=== PATIENT | female | born 1930 | race Caucasian/White ===

== ENCOUNTER 2020-12-22 15:47 | Inpatient (IN) | payer BC ==
[~2020-12-22] VITALS: Ht 152.4 cm; Wt 42.8 kg
--- NOTE | 2020-12-22 15:55 | NUR ---
PATIENT [id number], WAS AT AN URGENT CARE FOR WOUND CHECK BUT WAS HAVING ON AND OFF THROBBING CHEST PAIN X 1 WEEK. PATIENT AWAKE ALERT AND ORIENTED X4. NO RESPIRATORY DISTRESS NOTED AT THIS TIME. AWAITING MD GIRON.
[2020-12-22 16:41] LABS: BASOPHILS # (AUTO) 0.1 K/uL (0.0-0.2); EOSINOPHILS % (AUTO) 0.6 % (0.0-6.0); HEMATOCRIT 24 % (33-45); HEMOGLOBIN 7.1 g/dL (11.5-14.8); LYMPHOCYTES # (AUTO) 1.4 K/uL (0.8-4.8); LYMPHOCYTES % (AUTO) 26.9 % (20.0-44.0); MEAN CORPUSCULAR HGB CONC 30 g/dl (31.0-36.0); MEAN CORPUSCULAR VOLUME 76 fL (82-100); MONOCYTES # (AUTO) 0.5 K/uL (0.1-1.30); MONOCYTES % (AUTO) 10.1 % (2.0-12.0); NEUTROPHILS # (AUTO) 3.2 K/uL (1.8-8.9); NEUTROPHILS % (AUTO) 61.4 % (43.0-81.0); PLATELET COUNT (AUTO) 416 K/uL (150-450); RED BLOOD CELL COUNT(AUTO) 3.11 MIL/uL (4.0-5.2); WHITE BLOOD COUNT (AUTO) 5.2 K/uL (4.3-11.0)
[2020-12-22 16:47] LABS: CARBON DIOXIDE 23 mmol/L (21-32); CHLORIDE 107 mmol/L (98-107); CREATININE 0.5 mg/dL (0.6-1.3); GLUCOSE 60 mg/dL (74-106); SODIUM SERUM 139 mmol/L (136-145); UREA NITROGEN, BLOOD 20 mg/dL (7-18)
[2020-12-22 17:41] LABS: EOSINOPHILS % (MANUAL) 2 % (0-4); LYMPHOCYTES % (MANUAL) 16 % (16-48); MONOCYTES % (MANUAL) 6 % (0-11.0); NEUTROPHILS % (MANUAL) 76 (42-76)
--- NOTE | 2020-12-22 17:43 | NUR ---
[facility] PAGED. AWAITING HOSPITALIST CALL BACK.
--- NOTE | 2020-12-22 17:44 | NUR ---
Patient in bed, awake alert, No distress noted.
--- NOTE | 2020-12-22 17:53 | NUR ---
CALLED MAYRA DOWD WITH NO ANSWER. AWAITING A CALL BACK.
--- NOTE | 2020-12-22 17:54 | NUR ---
Patients friend Natalie at bedside as requested.
--- NOTE | 2020-12-22 17:56 | NUR ---
MELBA MEEK ON THE PHONE WITH HOSPITALIST.
--- NOTE | 2020-12-22 18:02 | NUR ---
CALLED NURSING IT RISK ADVISOR FOR TELE BED.
--- NOTE | 2020-12-22 18:11 | NUR ---
MEREDITH (POINT OF CONTACT) [phone].
--- NOTE | 2020-12-22 19:09 | NUR ---
ASSISTED PATIENT TO RESTROOM.
--- NOTE | 2020-12-22 19:49 | NUR ---
325-2 PER RN TRUCKING CONTRACTOR
--- NOTE | 2020-12-22 20:56 | NUR ---
REPORT GIVEN TO GIANLUCA DE ANDA FOR CARISSA
[2020-12-22 22:15] VITALS: BP 135/70
--- NOTE | 2020-12-22 23:00 | NUR ---
PT TRANSFERRED TO 325-1 VIA ACLS PROTOCOL. ALL BELONGINGS WITH PT
--- NOTE | 2020-12-22 23:00 | NUR ---
JOB FOREMAN OPENING NOTES: RECEIVED PATIENT FROM ER VIA GURNEY, AWAKE, AMBULATORY, NO COMPLAIN OF PAIN AND DISCOMFORT, PLACE IN BED COMFORTABLY, BED IN LOW POSITION, CALL LIGHTS WITHIN REACH, ORIENTED TO ROOM, ON TELE MONITORING WITH READING SR -55-58 WITH BBB, NO SYMPTOMS WAS OBSERVED, PATIENT WITH IV LINE AT LFA#20- SL, PATIENT WAS AMBULATORY AND ABLE TO MAKE NEEDS KNOWN, SKIN CHECK DONE, PICTURES ON SKIN ISSUE TAKEN, INVENTORY DONE, PATIENT KEPT COMFORTABLE AND DRY, REMIND TO USE CALL LIGHTS WHEN NEEDED ASSISTANCE, WILL CONTINUE TO MONITOR
[2020-12-22] MEDS ORDERED: ONDANSETRON HCL/PF 4 MG/2 ML VIAL IVP PRN (23:30)
[2020-12-22] MEDS ORDERED: Z GUARD REMEDY 2 OZ OINT TP PRN (23:30)
[2020-12-22] MEDS ORDERED: ACETAMINOPHEN 325 MG TABLET PO PRN (23:30)
[2020-12-22] MEDS ORDERED: SOD FERRIC GLUC 125 MG in IV NS 0.9% 100 ML IV SCH (23:30)
[2020-12-22] MEDS ORDERED: SOD FERRIC GLUC 62.5 MG/5 ML AMPUL IV ONE (23:55)
[2020-12-23] VITALS (10 sets, daily range): BP systolic 125–152; BP diastolic 34–84
[2020-12-23 06:28] LABS: CHOLESTEROL 189 mg/dL (<200); HDL CHOLESTEROL 90 mg/dL (40-60); LDL 85 mg/dL (0-99); THYROID STIMULATING HORMONE 1.446 uIU/mL (0.358-3.74); TRIGLYCERIDES 54 mg/dL (30-150)
[2020-12-23 06:52] LABS: IRON, SERUM 182 ug/dl (50-175); TOTAL IRON BINDING CAPACITY 421 ug/dl (250-450)
[2020-12-23 07:00] LABS: LYMPHOCYTES # (AUTO) 2.1 K/uL (0.8-4.8); MONOCYTES # (AUTO) 0.3 K/uL (0.1-1.30); WHITE BLOOD COUNT (AUTO) 5.3 K/uL (4.3-11.0)
--- NOTE | 2020-12-23 07:06 | NUR ---
PRODUCT DEVELOPMENT ACTUARY CLOSING NOTES: PATIENT SLEEP IN BED COMFORTABLY, BED IN LOW POSITION, CALL LIGHTS WITHIN REACH, NO COMPLAIN OF PAIN AND DISCOMFORT AT THIS TIME, WITH IV LINE AT LEFT HAND #20 SL PATIENT, ON TELE MONITORING SR-67 WITH BBB NO SYMPTOMS WAS NOTED, WITH PENDING BLOOD TRANSFUSION, PATIENT KEPT CLEAN AND DRY,ALL NEEDS MET, ENDORSE TO INCOMING SHIFT.
[2020-12-23 07:09] LABS: BASOPHILS # (AUTO) 0.1 K/uL (0.0-0.2); EOSINOPHILS % (AUTO) 2.6 % (0.0-6.0); HEMATOCRIT 21 % (33-45); LYMPHOCYTES % (AUTO) 38.7 % (20.0-44.0); MEAN CORPUSCULAR HGB CONC 32 g/dl (31.0-36.0); MEAN CORPUSCULAR VOLUME 74 fL (82-100); MONOCYTES % (AUTO) 5.8 % (2.0-12.0); NEUTROPHILS # (AUTO) 2.8 K/uL (1.8-8.9); NEUTROPHILS % (AUTO) 51.9 % (43.0-81.0); PLATELET COUNT (AUTO) 383 K/uL (150-450); RED BLOOD CELL COUNT(AUTO) 2.88 MIL/uL (4.0-5.2)
--- NOTE | 2020-12-23 07:54 | NUR ---
CABANA ATTENDANT OPENING NOTES RECEIVED PATIENT IN BED, AWAKE, A/O X4. PATIENT ON ROOM AIR; BREATHING EVEN AND UNLABORED, NO SOB NOTED AT THIS TIME. NO COMPLAINS OF PAIN. TELE MONITOR WITH A CURRENT READING OF NSR 67. IV ACCESS OF L WRIST G #20; SL. SAFETY PRECAUTIONS IN PLACE; BED IN LOW POSITION AND LOCKED, RAILS UP X2, CALL LIGHT WITHIN REACH. WILL CONTINUE TO MONITOR PATIENT.
[2020-12-23] MEDS: PANTOPRAZOLE 40 MG TABLET.DR PO SCH (08:11)
[2020-12-23 08:15] LABS: HEMOGLOBIN 6.8 g/dL (11.5-14.8)
[2020-12-23 08:42] LABS: EOSINOPHILS % (MANUAL) 1 % (0-4); LYMPHOCYTES % (MANUAL) 27 % (16-48); MONOCYTES % (MANUAL) 4 % (0-11.0); NEUTROPHILS % (MANUAL) 68 (42-76)
[2020-12-23] MEDS ORDERED: ASPIRIN EC 81 MG TABLET.DR PO SCH (09:00)
--- NOTE | 2020-12-23 09:00 | NUR ---
[employer] BI ARCHITECT NOTES LAB CALLED WITH CRITICAL HGB OF 6.8 MD ON THE FLOOR AND AWARE. PATIENT SIGNED BLOOD TRANSFUSION CONSENT.
[2020-12-23 10:32] LABS: ALANINE AMINOTRANSFERASE 23 U/L (12-78); ALBUMIN 2.9 g/dL (3.4-5.0); ALKALINE PHOSPHATASE 53 U/L (46-116); ASPARTATE AMINOTRANSFERASE 18 U/L (15-37); BILIRUBIN,TOTAL 0.5 mg/dL (0.2-1.0); CALCIUM, SERUM 7.7 mg/dL (8.5-10.1); CARBON DIOXIDE 24 mmol/L (21-32); CHLORIDE 107 mmol/L (98-107); CREATININE 0.5 mg/dL (0.6-1.3); GLUCOSE 95 mg/dL (74-106); PHOSPHORUS 2.9 mg/dL (2.5-4.9); POTASSIUM 4.1 mmol/L (3.5-5.1); SODIUM SERUM 138 mmol/L (136-145); TOTAL PROTEIN, SERUM 5.5 g/dL (6.4-8.2); UREA NITROGEN, BLOOD 28 mg/dL (7-18)
--- NOTE | 2020-12-23 12:25 | NUR ---
SCIENCE MANAGER NOTES PATIENT STARTED BLOOD TRANSFUSION. VS WNL.
--- NOTE | 2020-12-23 16:12 | NUR ---
SURVEILLANCE ANALYST NOTES BLOOD TRANSFUSION DONE. NO ADVERSE REACTIONS NOTED. VS WNL. WILL CONTINUE TO MONITOR PATIENT.
[2020-12-23] MEDS: FERRLICET 125MG in 100 ML NS IVPB IV SCH (17:17)
--- NOTE | 2020-12-23 18:55 | NUR ---
MORTGAGE LOAN FUNDER CLOSING NOTES PATIENT REMAINS IN BED, AWAKE, A/O X4. PATIENT ON ROOM AIR; BREATHING EVEN AND UNLABORED, NO SOB NOTED. NO COMPLAINS OF PAIN. TELE MONITOR WITH A CURRENT READING OF NSR 70. IV ACCESS ON LANIE MIDLINE. ALL NEEDS ATTENDED DURING THE DAY. SAFETY PRECAUTIONS IN PLACE; BED IN LOW POSITION AND LOCKED, RAILS UP X2, CALL LIGHT WITHIN REACH. WILL ENDORSE TO MEDICAID ELIGIBILITY SPECIALIST NURSE.
--- NOTE | 2020-12-23 19:40 | NUR ---
LOGGING ASSISTANT NOTES RECEIVED ON BED A/O X3-4,NO SOB,SR WITH BBB ON TELE MONITOR-81,WITH LEFT UPPER ARM MIDLINE INTACT AND PATENT.ASSIST WITH ADLS,FALL PRECAUTION OBSERVED,BED ON LOWEST POSITION AND LOCKED.CALL LIGHT IN REACH,NEEDS ANTICIPATED.
[2020-12-23 20:34] LABS: OCCULT BLOOD STOOL POSITIVE (NEGATIVE)
[2020-12-23] MEDS: ATORVASTATIN 10 MG TABLET PO SCH (21:35)
[2020-12-24] VITALS (7 sets, daily range): BP systolic 142–152; BP diastolic 63–87
--- NOTE | 2020-12-24 07:33 | NUR ---
SERVICE CONTROL OPERATOR OPENING NOTES RECEIVED PATIENT AWAKE IN BED, ALERT AN ORIENTED X 4. NOT IN ANY APPARENT DISTRESS. IV ACCESS LANIE MIDLINE PATENT AND INTACT. BREATHING IS EVEN AND UNLABORED. TOLERATING WELL ON ROOM AIR. SAFETY MEASURES IN PLACE WITH BED LOCKED AT LOW POSITION AND SIDE RAILS UP X2. CALL LIGHT IS WITHIN REACH. WILL CONTINUE TO MONITOR THROUGHOUT SHIFT.
[2020-12-24 08:16] LABS: BASOPHILS % (AUTO) 0.5 % (0.0-2.0); EOSINOPHILS % (AUTO) 3.2 % (0.0-6.0); HEMATOCRIT 30 % (33-45); HEMOGLOBIN 9.4 g/dL (11.5-14.8); LYMPHOCYTES # (AUTO) 1.5 K/uL (0.8-4.8); MEAN CORPUSCULAR HGB CONC 32 g/dl (31.0-36.0); MEAN CORPUSCULAR VOLUME 77 fL (82-100); MONOCYTES # (AUTO) 0.6 K/uL (0.1-1.30); MONOCYTES % (AUTO) 8.3 % (2.0-12.0); NEUTROPHILS # (AUTO) 4.7 K/uL (1.8-8.9); PLATELET COUNT (AUTO) 398 K/uL (150-450); RED BLOOD CELL COUNT(AUTO) 3.81 MIL/uL (4.0-5.2)
[2020-12-24 08:17] LABS: CALCIUM, SERUM 8.5 mg/dL (8.5-10.1); CREATININE 0.6 mg/dL (0.6-1.3); POTASSIUM 4.1 mmol/L (3.5-5.1)
[2020-12-24] MEDS: PANTOPRAZOLE 40 MG TABLET.DR PO SCH (08:21)
[2020-12-24 09:35] LABS: EOSINOPHILS % (MANUAL) 1 % (0-4); LYMPHOCYTES % (MANUAL) 16 % (16-48); MONOCYTES % (MANUAL) 6 % (0-11.0); NEUTROPHILS % (MANUAL) 77 (42-76)
[2020-12-24] MEDS ORDERED: ALPRAZOLAM 0.25 MG TABLET PO PRN (12:30)
[2020-12-24] MEDS: FERRLICET 125MG in 100 ML NS IVPB IV SCH (14:18)
--- NOTE | 2020-12-24 19:00 | NUR ---
MS RN CLOSING NOTES PATIENT AWAKE IN BED, ALERT AN ORIENTED X 4, ANXIOUS. NOT IN ANY APPARENT DISTRESS. IV ACCESS LANIE MIDLINE PATENT AND INTACT. ALL NEEDS MET THROUGHOUT SHIFT. BREATHING IS EVEN AND UNLABORED. TOLERATING WELL ON ROOM AIR. SAFETY MEASURES MAINTAINED. CALL LIGHT IS WITHIN REACH. WILL ENDORSE CONTINUITY OF CARE TO ONCOMING SHIFT.
--- NOTE | 2020-12-24 19:49 | NUR ---
MS RN OPENING NOTE PT A/OX4; ABLE TO MAKE NEEDS KNOWN. ON R/A; TOLERATING WELL WITH NO SOB. LANIE MIDLINE #18G S/L; PATENT AND INTACT. DENIES PAIN OR DISCOMFORT AT THIS TIME. SAFETY MEASURES IN PLACE: BED IN LOWEST LOCKED POSITION; SIDE RAILS UPX2, CALL LIGHT WITHIN EASY REACH. PATIENT IN STABLE CONDITION; WILL CONT PLAN OF CARE.
[2020-12-24] MEDS: ATORVASTATIN 10 MG TABLET PO SCH (21:16)
[2020-12-24] MEDS: PANTOPRAZOLE 40 MG VIAL IV SCH (21:16)
--- NOTE | 2020-12-25 06:25 | NUR ---
MS RN CLOSING NOTE PT A/OX4; ABLE TO MAKE NEEDS KNOWN. ON R/A; TOLERATING WELL WITH NO SOB. LANIE MIDLINE #18G S/L; PATENT AND INTACT. DENIES PAIN OR DISCOMFORT AT THIS TIME. SAFETY MEASURES IN PLACE: BED IN LOWEST LOCKED POSITION; SIDE RAILS UPX2, CALL LIGHT WITHIN EASY REACH. PATIENT IN STABLE CONDITION; WILL ENDORSE PLAN OF CARE TO ONCOMING MORNING RN.
[2020-12-25 07:35] LABS: CALCIUM, SERUM 8.3 mg/dL (8.5-10.1); CREATININE 0.6 mg/dL (0.6-1.3); POTASSIUM 4.1 mmol/L (3.5-5.1)
--- NOTE | 2020-12-25 07:35 | NUR ---
MS RN OPENING NOTES RECEIVED PATIENT AWAKE IN BED, ALERT AN ORIENTED X 4. NOT IN ANY APPARENT DISTRESS. IV ACCESS LANIE MIDLINE PATENT AND INTACT. BREATHING IS EVEN AND UNLABORED. TOLERATING WELL ON ROOM AIR. SAFETY MEASURES IN PLACE WITH BED LOCKED AT LOW POSITION AND SIDE RAILS UP X2. CALL LIGHT IS WITHIN REACH. WILL CONTINUE TO MONITOR THROUGHOUT SHIFT.
[2020-12-25 07:54] LABS: BASOPHILS # (AUTO) 0.1 K/uL (0.0-0.2); BASOPHILS % (AUTO) 1.7 % (0.0-2.0); EOSINOPHILS % (AUTO) 4.5 % (0.0-6.0); HEMATOCRIT 25 % (33-45); HEMOGLOBIN 7.9 g/dL (11.5-14.8); LYMPHOCYTES # (AUTO) 1.3 K/uL (0.8-4.8); LYMPHOCYTES % (AUTO) 21.2 % (20.0-44.0); MEAN CORPUSCULAR HGB CONC 32 g/dl (31.0-36.0); MEAN CORPUSCULAR VOLUME 77 fL (82-100); MONOCYTES # (AUTO) 0.7 K/uL (0.1-1.30); MONOCYTES % (AUTO) 11.5 % (2.0-12.0); NEUTROPHILS # (AUTO) 3.7 K/uL (1.8-8.9); NEUTROPHILS % (AUTO) 61.1 % (43.0-81.0); PLATELET COUNT (AUTO) 296 K/uL (150-450); RED BLOOD CELL COUNT(AUTO) 3.21 MIL/uL (4.0-5.2)
[2020-12-25 08:00] VITALS: BP 140/64
[2020-12-25] MEDS: PANTOPRAZOLE 40 MG VIAL IV SCH ×2 (08:29→21:18)
[2020-12-25 08:57] LABS: EOSINOPHILS % (MANUAL) 7 % (0-4); LYMPHOCYTES % (MANUAL) 16 % (16-48); MONOCYTES % (MANUAL) 17 % (0-11.0); NEUTROPHILS % (MANUAL) 60 (42-76)
[2020-12-25] MEDS: FERRLICET 125MG in 100 ML NS IVPB IV SCH (14:40)
[2020-12-25 16:00] VITALS: BP_SYST 134; BP_SYST 135; BP_DIAS 65; BP_DIAS 79
--- NOTE | 2020-12-25 18:25 | NUR ---
MS RN CLOSING NOTES PT IS RESTING IN BED COMFORTABLY, ALERT AN ORIENTED X 4. NOT IN ANY APPARENT DISTRESS. BREATHING IS EVEN AND UNLABORED. TOLERATING WELL ON ROOM AIR. ALL NEEDS MET THROUGHOUT SHIFT. SAFETY MEASURES MAINTAINED. CALL LIGHT IS WITHIN REACH. WILL ENDORSE CONTINUITY OF CARE TO ONCOMING SHIFT.
--- NOTE | 2020-12-25 19:35 | NUR ---
MS/RN OPENING NOTE RECEIVED PATIENT RESTING IN BED. AWAKE, ALERT AND ORIENTED X 4. ABLE TO MAKE NEEDS KNOWN. DENIES PAIN AT THIS TIME. CONTINUES ON ROOM AIR WITH NO S/SX OF RESPIRATORY DISTRESS NOTED. IV ACCESS TO LEFT UPPER ARM MIDLINE INTACT, PATENT AND SALINE LOCKED. PATIENT TO BE NPO AFTER MIDNIGHT FOR EGD IN AM. PATIENT AWARE AND AGREEABLE. CALL LIGHT WITHIN REACH. ASPIRATION, FALL AND SAFETY PRECAUTIONS MAINTAINED. WILL CONTINUE TO MONITOR.
[2020-12-25 20:00] VITALS: BP 149/78
[2020-12-25] MEDS: ATORVASTATIN 10 MG TABLET PO SCH (21:18)
--- NOTE | 2020-12-26 06:30 | NUR ---
MS/RN CLOSING NOTE PATIENT CURRENTLY SLEEPING IN BED. ALERT AND ORIENTED X 4. ABLE TO MAKE NEEDS KNOWN. DENIES PAIN AT THIS TIME. CONTINUES ON ROOM AIR WITH NO S/SX OF RESPIRATORY DISTRESS NOTED. IV ACCESS TO LEFT UPPER ARM MIDLINE INTACT, PATENT AND SALINE LOCKED. PATIENT HAS BEEN NPO SINCE MIDNIGHT FOR EGD TODAY. CALL LIGHT WITHIN REACH. ASPIRATION, FALL AND SAFETY PRECAUTIONS MAINTAINED. WILL ENDORSE PLAN OF CARE TO ONCOMING SHIFT.
--- NOTE | 2020-12-26 07:59 | NUR ---
RN MS NOTES PT IN BED, ASLEEP, EASY TO AROUSE, NO COMPLAINT OF PAIN OR ANY DISCOMFORT, CALL LIGHT WITHIN REACH, KEPT NPO FOR EGD TODAY.
[2020-12-26 08:00] VITALS: BP 133/60
[2020-12-26] MEDS: PANTOPRAZOLE 40 MG VIAL IV SCH ×2 (08:23→21:16)
[2020-12-26 13:12] LABS: BASOPHILS # (AUTO) 0.1 K/uL (0.0-0.2); BASOPHILS % (AUTO) 1.3 % (0.0-2.0); EOSINOPHILS % (AUTO) 2.9 % (0.0-6.0); HEMATOCRIT 28 % (33-45); HEMOGLOBIN 8.6 g/dL (11.5-14.8); LYMPHOCYTES # (AUTO) 0.6 K/uL (0.8-4.8); LYMPHOCYTES % (AUTO) 10.7 % (20.0-44.0); MEAN CORPUSCULAR HGB CONC 31 g/dl (31.0-36.0); MEAN CORPUSCULAR VOLUME 79 fL (82-100); MONOCYTES # (AUTO) 0.5 K/uL (0.1-1.30); MONOCYTES % (AUTO) 8.7 % (2.0-12.0); NEUTROPHILS # (AUTO) 4.1 K/uL (1.8-8.9); NEUTROPHILS % (AUTO) 76.4 % (43.0-81.0); PLATELET COUNT (AUTO) 359 K/uL (150-450); RED BLOOD CELL COUNT(AUTO) 3.49 MIL/uL (4.0-5.2); WHITE BLOOD COUNT (AUTO) 5.4 K/uL (4.3-11.0)
[2020-12-26 14:01] LABS: CALCIUM, SERUM 8.4 mg/dL (8.5-10.1); CREATININE 0.6 mg/dL (0.6-1.3); POTASSIUM 4.2 mmol/L (3.5-5.1)
[2020-12-26] MEDS: FERRLICET 125MG in 100 ML NS IVPB IV SCH (14:01)
--- NOTE | 2020-12-26 14:19 | NUR ---
RN MS NOTES PT SEEN AND EXAMINED BY DR. PICKERING, PLAN FOR EGD AND COLONOSCOPY EXPLAINED TO PT, VERBALIZED UNDERSTANDING, ORDERS GIVEN, NOTED AND CARRIED OUT.
[2020-12-26 16:00] VITALS: BP 149/84
[2020-12-26] MEDS ORDERED: PEG 3350/NA SULF,BICARB,CL/KCL 4,000 ML BOTTLE PO ONE (18:00)
--- NOTE | 2020-12-26 18:22 | NUR ---
RN MS NOTES PT IN BED, AWAKE, ALERT AND ORIENTED, NO COMPLAINT OF PAIN OR ANY DISCOMFORT, RESPIRATIONS NORMAL, CALL LIGHT WITHIN REACH, AMBULATES TO THE BATHROOM WITH SLOW AND STEADY GAIT, AWARE OF BOWEL PREP FOR TOMORROW' EGD AND COLONOSCOPY, KEPT MEDIA SENIOR RECRUITER BED.
--- NOTE | 2020-12-26 19:35 | NUR ---
MS/RN OPENING NOTE RECEIVED PATIENT RESTING IN BED. ALERT AND ORIENTED X 4. ABLE TO MAKE NEEDS KNOWN. DENIES PAIN AT THIS TIME. CONTINUES ON ROOM AIR WITH NO S/SX OF RESPIRATORY DISTRESS NOTED. IV ACCESS TO LEFT UPPER ARM MIDLINE INTACT, PATENT AND SALINE LOCKED. CONTINUES ON GOLYTELY FOR ANTICIPATED COLONOSCOPY AND EGD IN AM. ALL CONSENTS SIGNED AND IN CHART. PATIENT TO BE NPO AT MIDNIGHT EXCEPT GOLYTELY. CALL LIGHT WITHIN REACH. ASPIRATION, FALL AND SAFETY PRECAUTIONS MAINTAINED. WILL CONTINUE TO MONITOR.
[2020-12-26 20:00] VITALS: BP 168/93
[2020-12-26 20:45] VITALS: BP 146/78
[2020-12-26] MEDS: ATORVASTATIN 10 MG TABLET PO SCH (21:16)
[2020-12-27] MEDS ORDERED: SORBITOL SOLUTION 30 ML PO ONE (06:00)
--- NOTE | 2020-12-27 06:15 | NUR ---
MS/RN CLOSING NOTE PATIENT CURRENTLY RESTING IN BED. ALERT AND ORIENTED X 4. ABLE TO MAKE NEEDS KNOWN. DENIES PAIN AT THIS TIME. CONTINUES ON ROOM AIR WITH NO S/SX OF RESPIRATORY DISTRESS NOTED. IV ACCESS TO LEFT UPPER ARM MIDLINE INTACT, PATENT AND SALINE LOCKED. COMPLETED MOST OF GOLYTELY FOR COLONOSCOPY AND EGD TODAY. PATIENT REPORTS STOOLS ARE WATERY AND CLEAR. ALL CONSENTS SIGNED AND IN CHART. PATIENT HAS BEEN NPO SINCE MIDNIGHT. CALL LIGHT WITHIN REACH. ASPIRATION, FALL AND SAFETY PRECAUTIONS MAINTAINED. WILL ENDORSE PLAN OF CARE TO ONCOMING SHIFT.
[2020-12-27 06:52] LABS: BASOPHILS # (AUTO) 0.1 K/uL (0.0-0.2); BASOPHILS % (AUTO) 1.1 % (0.0-2.0); EOSINOPHILS % (AUTO) 3.5 % (0.0-6.0); HEMATOCRIT 26 % (33-45); HEMOGLOBIN 8.4 g/dL (11.5-14.8); LYMPHOCYTES # (AUTO) 0.9 K/uL (0.8-4.8); LYMPHOCYTES % (AUTO) 17.6 % (20.0-44.0); MEAN CORPUSCULAR HGB CONC 32 g/dl (31.0-36.0); MEAN CORPUSCULAR VOLUME 80 fL (82-100); MONOCYTES # (AUTO) 0.5 K/uL (0.1-1.30); MONOCYTES % (AUTO) 10.1 % (2.0-12.0); NEUTROPHILS # (AUTO) 3.6 K/uL (1.8-8.9); NEUTROPHILS % (AUTO) 67.7 % (43.0-81.0); PLATELET COUNT (AUTO) 322 K/uL (150-450); RED BLOOD CELL COUNT(AUTO) 3.32 MIL/uL (4.0-5.2); WHITE BLOOD COUNT (AUTO) 5.3 K/uL (4.3-11.0)
[2020-12-27 07:20] LABS: CALCIUM, SERUM 8.5 mg/dL (8.5-10.1); CREATININE 0.6 mg/dL (0.6-1.3); POTASSIUM 3.9 mmol/L (3.5-5.1)
--- NOTE | 2020-12-27 07:45 | NUR ---
RN OPENING NOTES Patient seen comfortably lying in bed, no SOB, respirations even and unlabored, no apparent distress noted, denies any pain or discomfort at this time, no grimacing. Patient remains NPO for EGD/colonoscopy today. Call light left within reach, safety measures maintained, brakes locked, side rails up X2, will monitor closely for any changes.
[2020-12-27 08:00] VITALS: BP 158/76
[2020-12-27] MEDS: PANTOPRAZOLE 40 MG VIAL IV SCH ×2 (08:11→21:05)
--- NOTE | 2020-12-27 09:11 | NUR ---
WOUND CARE CONSULT: PT PRESENTS WITH SKIN TEAR TO RT ARM, PRESENT ON ADMISSION. RECOMMENDATIONS MADE FOR SKIN PROTECTION AND CARE. DISCUSSED WITH NURSING STAFF. PT IS INDEPENDENT WITH BED MOBILITY AND IS CONTINENT. IN AGREEMENT WITH PLAN OF CARE. Addendum: 12/27/20 at 0912 by ROBYN PASTOR [id number] Amended: Links added.
--- NOTE | 2020-12-27 11:17 | NUR ---
RN MS NOTES PT IN BED, AWAKE, ALERT AND ORIENTED, NO COMPLAINT OF PAIN, NO SOB, PT SEEN BY DR. PEÑA, PLAN OF CARE DISCUSSED WITH PT, VERBALIZED UNDERSTANDING, PICKED UP BY O.R. STAFF FOR EGD/COLONOSCOPY VIA BED, IN STABLE CONDITION.
--- NOTE | 2020-12-27 14:20 | NUR ---
Patient came back from procedure, stable condition, no apparent distress noted, denies any pain or discomfort, per MD okay to resume meds and diet. Vital signs as follows: BP 132/82 PR68 RR18 T97.8 02 97-98% room air.
[2020-12-27 16:00] VITALS: BP 132/82
--- NOTE | 2020-12-27 18:47 | NUR ---
RN CLOSING NOTES Patient seen comfortably lying in bed, AOX4, no apparent distress noted, denies any pain or discomfort at this time, breathing even and unlabored, no SOB. Skin warm to touch, no pallor or cyanosis noted. All due medications given per MD order, tolerating well. All needs attended, kept clean and dry, call light left within reach, safety measures maintained, brakes locked, side rails up X2, , will endorse to next shift for continuity of care.
[2020-12-27 20:00] VITALS: BP 140/67
--- NOTE | 2020-12-27 20:00 | NUR ---
Patient is awake, A&Ox4. Able to make needs known. Denies any needs at this time. Midline LANIE flushed and patent. No obvious signs of bleeding. continue with GI prophylaxis as ordered. Will continue to monitor.
[2020-12-27] MEDS: ATORVASTATIN 10 MG TABLET PO SCH (21:05)
--- NOTE | 2020-12-28 06:30 | NUR ---
MS RN CLOSING NOTES Patient has been A&Ox4. VSS. Slept well throughout night though easy to wake. No signs of distress. Patient denies pain or discomfort. No obvious signs of bleeding. No BM overnight.
--- NOTE | 2020-12-28 07:30 | NUR ---
MS RN OPENING NOTES RECEIVED PATIENT AWAKE STANDING UP IN ROOM, ALERT AN ORIENTED X 4. NOT IN ANY APPARENT DISTRESS. IV ACCESS LANIE MIDLINE PATENT AND INTACT. BREATHING IS EVEN AND UNLABORED. TOLERATING WELL ON ROOM AIR. SAFETY MEASURES IN PLACE WITH BED LOCKED AT LOW POSITION AND SIDE RAILS UP X2. CALL LIGHT IS WITHIN REACH. WILL CONTINUE TO MONITOR THROUGHOUT SHIFT.
[2020-12-28 08:16] VITALS: BP 134/67
[2020-12-28] MEDS: PANTOPRAZOLE 40 MG VIAL IV SCH (08:21)
[2020-12-28] MEDS ORDERED: OMEP20TA20 PO ×2 (11:12→11:15)
[2020-12-28 17:50] VITALS: BP 145/66
--- NOTE | 2020-12-28 18:37 | NUR ---
MS STRUCTURAL METAL FABRICATOR APPRENTICE NOTES PATIENT WAS DISCHARGED WITH STABLE VITAL SIGNS. NO S/S OF DISTRESS NOTED. NO C/O PAIN AT THIS TIME. IV ACCESS AND WRIST BAND REMOVED. PATIENT DISCHARGE SUMMARY AND INSTRUCTIONS REVIEWED AND SIGNED WITH PATIENT. PATIENT WAS PICKED UP by FRIEND MEREDITH. OBSERVED PATIENT LEAVE UNIT AND GET INTO PRIVATE CAR.
== END 2020-12-28 18:30 | disposition home or self-care (01) | DRG 377 ==
LOC: ER 16:09 → TELE 21:44 → MED 12-24 11:59
PROVIDERS: ADMIT Nurse Practitioner Acute Care; ATTEND Nurse Practitioner Acute Care
PROC: 30233N1 Transfusion of Nonautologous Red Blood Cells into Peripheral Vein, Percutaneous Approach (ICD-10-PCS; 2020-12-22)
PROC: 05HC33Z Insertion of Infusion Device into Left Basilic Vein, Percutaneous Approach (ICD-10-PCS; principal; 2020-12-23)
PROC: 0DB68ZX Excision of Stomach, Via Natural or Artificial Opening Endoscopic, Diagnostic (ICD-10-PCS; 2020-12-27)
PROC: 0DJD8ZZ Inspection of Lower Intestinal Tract, Via Natural or Artificial Opening Endoscopic (ICD-10-PCS; 2020-12-27)
DX: K25.4 Chronic or unspecified gastric ulcer with hemorrhage (principal); N17.0 Acute kidney failure with tubular necrosis; E44.1 Mild protein-calorie malnutrition; R64 Cachexia; Z68.1 Body mass index [BMI] 19.9 or less, adult; K22.2 Esophageal obstruction; K29.70 Gastritis, unspecified, without bleeding; D50.9 Iron deficiency anemia, unspecified; E83.51 Hypocalcemia; I10 Essential (primary) hypertension; F03.90 Unspecified dementia, unspecified severity, without behavioral disturbance, psychotic disturbance, mood disturbance, and anxiety; K44.9 Diaphragmatic hernia without obstruction or gangrene; Z20.822 Contact with and (suspected) exposure to COVID-19; K57.90 Diverticulosis of intestine, part unspecified, without perforation or abscess without bleeding; K64.4 Residual hemorrhoidal skin tags
CPT/HCPCS: 36410; 36415; 71045-TC; 80048-TC; 80053-TC; 80061-TC; 82272-TC; 83540-TC; 84100-TC; 84443-TC; 84484-TC; 85025-TC; 85730-TC; 86850-TC; 87081-TC; 88305-TC; 88313-TC; 88342; 93307-TC; A6403; C9113; C9803; G0378; J2704; J2916; J3490; J7030; J7040; J7050; P9016